=== PATIENT | male | born 1960 | race Caucasian/White ===

== ENCOUNTER 2022-10-15 14:00 | Inpatient (IN) ==
--- NOTE | 2022-10-15 14:29 | Emergency Department Note ---
Impression & Plan Hypoxia, Hypokalemia, Fatigue, Hypomagnesemia ED Provider Note Provider: Sav Ibanez MD DATE OF SERVICE: 10/15/2022 CHIEF COMPLAINT: Shortness of breath, fatigue HISTORY OF PRESENT ILLNESS: Patient is a 62-year-old gentleman history of CAD and A-fib on Eliquis presenting here today via ambulance from his home. States he felt very lightheaded and weak and shortness of breath earlier today while at the store. Made at home and called 9 1 as his pulse ox was noted to be home low at home. States he is not a smoker. States he had some chronic fatigue issues over the last year or 2. Denies any chest pain today at all. States he did notice little bit of increased swelling of his legs and feet today. Denies any abdominal symptoms or pain. Denies recent sick contacts. States compliance with his home Eliquis and other medications including aspirin. Not currently on a diuretic. Denies significant runny nose or cough. Has had some increased rest recently due to mother's recent fall and injury. PAST MEDICAL HISTORY: As noted above MEDICATIONS: Reviewed home medication SOCIAL HISTORY: Non-smoker, PHYSICAL EXAM: GENERAL: alert and oriented in no acute distress on stretcher Head: normocephalic and atraumatic EYES: No injection, discharge or icterus. NECK: Trachea midline. ENT: Mucous membranes pink and moist. LUNGS: Airway patent. No retractions. Breath sounds clear with a few scattered crackles in the lung bases. HEART: Regular rate and rhythm. No chest wall tenderness ABDOMEN: Soft and non-tender, without guarding or rebound. SKIN: Acyanotic, warm, dry, without rashes EXTREMITIES: Patient with 1-2+ pitting edema of the lower extremities NEUROLOGICAL: No focal deficits. No aphasia. No facial droop or slurred speech. Ambulatory. EK bpm sinus rhythm first-degree AV block. No acute ST segment elevation or depression with a QTc of 459. CONTINUOUS CARDIAC MONITORING: was ordered and showed a heart rate of 90s-100s bpm in first-degree AV block sinus rhythm to sinus tachycardia Patient's laboratory studies and imaging reviewed. Differential includes Reactive airway disease, pneumonia, pneumothorax, COPD, CHF, infections, cardiac ischemia, pulmonary embolism, musculoskeletal, gastrointestinal, as well as other pathologies. IMPRESSION/MEDICAL DECISION MAKING: Patient reportedly with cardiac history on Eliquis. Lower suspicion for VTE. No pain complaints lower suspicion for acute ACS/IL. EKG without findings of STEMI. Does not appear to be in A-fib at this time. Does have some leg swelling question some component of CHF with this. COVID flu RSV test sent but denies significant infectious symptoms. Blood work and x-ray ordered. BNP sent. Care has previously been at [facility]. Reports some chronic fatigue issues. Lyme test was sent but unsure of etiology. Does appear to be somewhat hypoxic here on room air ranging between the mid 80s to about 90% on room air at rest. Oxygen supplementation provided. Chest x-ray by radiology report and review question some mild pulmonary edema. Blood work without leukocytosis and mild anemia noted. No priors for comparison. Also has evidence of some renal dysfunction with creatinine 1.56 but again unclear baseline. Slight hypomagnesemia of 1.4 noted. Slight hypokalemia of 2.9 noted. Supplementation via IV and oral ordered. No signs of acute hepatitis. BNP minimally elevated at 111. Troponin within normal limits at 17.5. Ordered low-dose IV Lasix for diuresis being mindful of the electrolyte levels currently. Given his hypoxia discussed with him staying for further treatment of his electrolyte abnormalities and fluid overload with further cardiac evaluation. He was in agreement. Hospitalist contacted. DIAGNOSIS: Shortness of breath, hypoxia, hypokalemia, hypomagnesemia DISPOSITION: Hospitalist will evaluate Patient was agreeable with this plan. Past Med/Surg History Medical History Afib Shelby esophagus CAD (coronary artery disease) GERD (gastroesophageal reflux disease) HTN (hypertension) Social History Smoking Status: Never smoker Feels Safe at Home: Yes Allergies Allergies Allergy/AdvReac Type Severity Reaction Status Date / Time bee venom protein (honey bee) Allergy Severe Anaphylaxis Verified 10/15/22 15:52 Home Meds Home Medications Medication Instructions Recorded Confirmed amlodipine 10 mg tablet 10 mg PO QAM 10/15/22 10/15/22 apixaban 5 mg tablet (Eliquis) 5 mg PO BID 10/15/22 10/15/22 aspirin 81 mg tablet,delayed 81 mg PO QAM 05/14/23 05/14/23 release atorvastatin 80 mg tablet (Lipitor) 80 mg PO QPM 10/15/22 10/15/22 carvedilol 6.25 mg tablet 6.25 mg PO BID 10/15/22 10/15/22 losartan 100 mg tablet 100 mg PO QAM 10/15/22 10/15/22 nitroglycerin 0.4 mg sublingual 0.4 mg sublingual UD PRN Chest Pain 10/15/22 10/15/22 tablet (Nitrostat) potassium chloride 20 mEq 20 meq PO QAM 10/15/22 10/15/22 tablet,extended release(part/cryst) Results & Data (ED) Vital Signs Vital Signs - 24 hr 10/15/22 14:04 10/15/22 14:11 10/15/22 14:21 Temperature 36.6 C Temperature Source Oral Pulse Rate 100 H Pulse Rate from SpO2 Sensor Respiratory Rate 16 Respiratory Effort / Characteristics Non-Labored Spontaneous Non-Labored Spontaneous Respiratory Depth Normal Normal Respiratory Pattern Regular Blood Pressure 146/72 H Blood Pressure Mean 96 Pulse Oximetry 98 Oxygen Delivery Method Nasal Cannula Nasal Cannula Nasal Cannula Oxygen Flow Rate 4 4 4 Sepsis Recent Fever Within 48 Hours No Sepsis New/Unexplained Change in Mental Status No Sepsis Action Taken by Nursing No Action Required Oxygen Flow Rate - Titration Pulse Oximetry Post Tiitration 10/15/22 14:22 10/15/22 14:33 10/15/22 14:20 Temperature Temperature Source Pulse Rate 99 H 96 H Pulse Rate from SpO2 Sensor 98 H Respiratory Rate 22 Respiratory Effort / Characteristics Respiratory Depth Respiratory Pattern Blood Pressure Blood Pressure Mean Pulse Oximetry 89 L 91 Oxygen Delivery Method Room Air Nasal Cannula Oxygen Flow Rate 3 Sepsis Recent Fever Within 48 Hours Sepsis New/Unexplained Change in Mental Status Sepsis Action Taken by Nursing Oxygen Flow Rate - Titration 3 Pulse Oximetry Post Tiitration 92 10/15/22 14:30 10/15/22 14:30 10/15/22 15:00 Temperature Temperature Source Pulse Rate 98 H Pulse Rate from SpO2 Sensor 97 H Respiratory Rate 20 Respiratory Effort / Characteristics Respiratory Depth Respiratory Pattern Blood Pressure 178/86 H 157/74 H Blood Pressure Mean 116 101 Pulse Oximetry 90 Oxygen Delivery Method Nasal Cannula Oxygen Flow Rate 3 Sepsis Recent Fever Within 48 Hours Sepsis New/Unexplained Change in Mental Status Sepsis Action Taken by Nursing Oxygen Flow Rate - Titration Pulse Oximetry Post Tiitration 10/15/22 15:00 10/15/22 15:30 10/15/22 15:30 Temperature Temperature Source Pulse Rate 100 H 94 H Pulse Rate from SpO2 Sensor 99 H 92 H Respiratory Rate 17 22 Respiratory Effort / Characteristics Respiratory Depth Respiratory Pattern Blood Pressure 169/82 H Blood Pressure Mean 111 Pulse Oximetry 96 94 Oxygen Delivery Method Nasal Cannula Nasal Cannula Oxygen Flow Rate 3 3 Sepsis Recent Fever Within 48 Hours Sepsis New/Unexplained Change in Mental Status Sepsis Action Taken by Nursing Oxygen Flow Rate - Titration Pulse Oximetry Post Tiitration Laboratory Data 10/15/22 14:10 10/15/22 14:10 Lab Results 10/15/22 10/15/22 10/15/22 Range/Units 14:10 14:10 14:10 WBC 6.11 (4.8-10.8) K/ul RBC 3.20 L (4.70-6.10) M/uL Hgb 10.6 L (14.0-18.0) g/dl Hct 28.9 L (42.0-52.0) % MCV 90.3 (80.0-100.0) fL MCH 33.1 (25.0-34.0) pg MCHC 36.7 H (32.0-36.0) g/dL RDW Std Deviation 45.6 (36.4-46.3) fL RDW Coeff of Lan 14.3 (11.5-14.5) % Plt Count 137 (130-400) K/uL MPV 10.5 (9.4-12.4) fL Immature Gran % (Auto) 0.3 % Neut % (Auto) 64.5 % Lymph % (Auto) 17.7 % Shackelford % (Auto) 15.1 % Eos % (Auto) 1.3 % Baso % (Auto) 1.1 % Neut # (Auto) 3.94 (1.40-6.50) K/uL Lymph # (Auto) 1.08 L (1.2-3.4) K/uL Shackelford # (Auto) 0.92 H (0.11-0.59) K/uL Eos # (Auto) 0.08 (0-0.50) K/uL Baso # (Auto) 0.07 (0-0.2) K/uL Immature Gran # (Auto) 0.02 (0.01-0.20) K/uL PT (9.0-12.0) Seconds INR (0.9-1.1) APTT (21.0-31.0) Seconds PTT Ratio Sodium (136-145) mmol/L Potassium (3.5-5.1) mmol/L Chloride (98-107) mmol/L Carbon Dioxide (21-32) mmol/L Anion Gap (3-11) BUN (6-23) mg/dl Creatinine (0.6-1.4) mg/dl Est Cr Clr Drug Dosing ml/min Est GFR ( Amer) ml/min Est GFR (Non-Af Amer) ml/min BUN/Creatinine Ratio (10-20) Glucose (70-99(Fasting)) mg/dl Calcium (8.6-10.3) mg/dl Magnesium (1.7-2.4) mg/dl Total Bilirubin (0.2-1.0) mg/dl AST (13-39) U/L ALT (7-52) U/L Alkaline Phosphatase (34-104) U/L Troponin I High Sens (0-20) pg/ml B-Natriuretic Peptide 111 H (0-100) pg/ml Total Protein (6.0-8.3) gm/dl Albumin (3.4-5.0) gm/dl Globulin (2.5-4.0) gm/dl Albumin/Globulin Ratio (0.9-2) Lyme Disease IgG Ab Negative (Negative) Lyme Disease IgM Ab Negative (Negative) SARS-CoV-2 (PCR) (Negative) Influenza Type A (PCR) (Neg) Influenza Type B (PCR) (Neg) RSV (RT-PCR) (Neg) 10/15/22 10/15/22 10/15/22 Range/Units 14:10 14:10 15:00 WBC (4.8-10.8) K/ul RBC (4.70-6.10) M/uL Hgb (14.0-18.0) g/dl Hct (42.0-52.0) % MCV (80.0-100.0) fL MCH (25.0-34.0) pg MCHC (32.0-36.0) g/dL RDW Std Deviation (36.4-46.3) fL RDW Coeff of Lan (11.5-14.5) % Plt Count (130-400) K/uL MPV (9.4-12.4) fL Immature Gran % (Auto) % Neut % (Auto) % Lymph % (Auto) % Shackelford % (Auto) % Eos % (Auto) % Baso % (Auto) % Neut # (Auto) (1.40-6.50) K/uL Lymph # (Auto) (1.2-3.4) K/uL [place]ackelford # (Auto) (0.11-0.59) K/uL Eos # (Auto) (0-0.50) K/uL Baso # (Auto) (0-0.2) K/uL Immature Gran # (Auto) (0.01-0.20) K/uL PT 12.4 H (9.0-12.0) Seconds INR 1.1 (0.9-1.1) APTT 28.2 (21.0-31.0) Seconds PTT Ratio 1.0 Sodium 141 (136-145) mmol/L Potassium 2.9 L (3.5-5.1) mmol/L Chloride 97 L (98-107) mmol/L Carbon Dioxide 35 H (21-32) mmol/L Anion Gap 9 (3-11) BUN 25 H (6-23) mg/dl Creatinine 1.56 H (0.6-1.4) mg/dl Est Cr Clr Drug Dosing 59.2 ml/min Est GFR ( Amer) 54.8 ml/min Est GFR (Non-Af Amer) 47.2 ml/min BUN/Creatinine Ratio 16.0 (10-20) Glucose 107 H (70-99(Fasting)) mg/dl Calcium 8.7 (8.6-10.3) mg/dl Magnesium 1.4 L (1.7-2.4) mg/dl Total Bilirubin 0.7 (0.2-1.0) mg/dl AST 25 (13-39) U/L ALT 23 (7-52) U/L Alkaline Phosphatase 64 (34-104) U/L Troponin I High Sens 17.5 (0-20) pg/ml B-Natriuretic Peptide (0-100) pg/ml Total Protein 7.2 (6.0-8.3) gm/dl Albumin 3.8 (3.4-5.0) gm/dl Globulin 3.4 (2.5-4.0) gm/dl Albumin/Globulin Ratio 1.1 (0.9-2) Lyme Disease IgG Ab (Negative) Lyme Disease IgM Ab (Negative) SARS-CoV-2 (PCR) NEGATIVE (Negative) Influenza Type A (PCR) Negative (Neg) Influenza Type B (PCR) Negative (Neg) RSV (RT-PCR) Negative (Neg) Administered Medications Discontinued Medications Furosemide (Furosemide Inj 20 Mg/2 Ml Vial) 20 mg IV ONE ONE Stop: 10/15/22 15:05 Last Admin: 10/15/22 15:48 Dose: 20 mg Documented By: EVELYNE Magnesium Sulfate/Dextrose (Magnesium Sulfate / D5w) 1 gm in 100 mls @ 200 mls/hr IV Q30M RENÉ Stop: 10/15/22 15:58 Last Admin: 10/15/22 16:37 Dose: 200 mls/hr Documented By: Infusion: 10/15/22 16:18 Dose: 200 mls/hr Documented By: Admin: 10/15/22 15:48 Dose: 200 mls/hr Documented By: EVELYNE Potassium Chloride (K Kareem / Wtr) 10 meq in 100 mls @ 100 mls/hr IV Q1H RENÉ Stop: 10/15/22 16:59 Last Admin: 10/15/22 15:48 Dose: 100 mls/hr Documented By: EVELYNE Potassium Chloride (Potassium Chloride Crtab 20 Meq Tabcr) 40 meq PO NOW STA Stop: 10/15/22 15:00 Last Admin: 10/15/22 15:48 Dose: 40 meq Documented By: EVELYNE Imaging Data Radiologist's Impression: Chest X-Ray 10/15/22 14:19 XR chest 1V portable CLINICAL HISTORY: Dyspnea, hypoxia TECHNIQUE: Single frontal radiograph of the chest was obtained. Comparison: None available at the time of this dictation. FINDINGS: Exam is limited by underpenetration. Cardiomegaly is noted. Prominence and cephalization of the vasculature is seen. No evidence of pleural effusion or pneumothorax. IMPRESSION: Cardiomegaly and mild pulmonary edema. ACT 112: Negative or not required by law. Electronically signed by: Henry Barrios M.D. 10/15/2022 3:00 PM Discharge Plan Visit Data Chief Complaint: Shortness of Breath/Dyspnea ED Provider: Sav Ibanez Discharge Problem: Hypoxia, Hypokalemia, Fatigue, Hypomagnesemia Patient Disposition: Being Evaluated by Hospitalist Discharge Instructions Interventions: ED Discharge Assessment Last Done: 10/15/22 17:20 Fatigue Qualifiers: Fatigue type: unspecified Qualified Code(s): R53.83 - Other fatigue
[2022-10-15 14:34] LABS: Basophils # (auto) 0.07 K/uL (0-0.2); Basophils % (auto) 1.1 %; Eosinophils # (auto) 0.08 K/uL (0-0.50); Eosinophils % (auto) 1.3 %; Hematocrit (blood only) 28.9 % (42.0-52.0); Hemoglobin 10.6 g/dl (14.0-18.0); Immature Granulocytes # (auto) 0.02 K/uL (0.01-0.20); Immature Granulocytes % (auto) 0.3 %; Lymphocytes # (auto) 1.08 K/uL (1.2-3.4); Lymphocytes % (auto) 17.7 %; Mean Corpuscular Hemoglobin 33.1 pg (25.0-34.0); Mean Corpuscular Hgb Conc 36.7 g/dL (32.0-36.0); Mean Corpuscular Volume 90.3 fL (80.0-100.0); Mean Platelet Volume 10.5 fL (9.4-12.4); Monocytes # (auto) 0.92 K/uL (0.11-0.59); Monocytes % (auto) 15.1 %; Neutrophils # (auto) 3.94 K/uL (1.40-6.50); Neutrophils % (auto) 64.5 %; Platelet Count 137 K/uL (130-400); RDW Coefficient of Variation 14.3 % (11.5-14.5); RDW Standard Deviation 45.6 fL (36.4-46.3); White Blood Count 6.11 K/ul (4.8-10.8)
[2022-10-15 14:49] LABS: Albumin Globulin Ratio 1.1 (0.9-2); Albumin Level 3.8 gm/dl (3.4-5.0); Bilirubin,Total 0.7 mg/dl (0.2-1.0); Calcium 8.7 mg/dl (8.6-10.3); Creatinine Clr Calc Pharmacy 59.2 ml/min; Est GFR (African American) 54.8 ml/min; Est GFR (Non-African American) 47.2 ml/min; Globulin 3.4 gm/dl (2.5-4.0); Magnesium 1.4 mg/dl (1.7-2.4); Potassium 2.9 mmol/L (3.5-5.1); Total Protein 7.2 gm/dl (6.0-8.3)
[2022-10-15 14:56] LABS: Troponin I High Sensitivity 17.5 pg/ml (0-20)
[2022-10-15] MEDS ORDERED: POTASSIUM CHLORIDE CRTAB 20 MEQ TABCR PO STA (14:59)
--- NOTE | 2022-10-15 15:02 | XRay Report ---
XR chest 1V portable CLINICAL HISTORY: Dyspnea, hypoxia TECHNIQUE: Single frontal radiograph of the chest was obtained. Comparison: None available at the time of this dictation. FINDINGS: Exam is limited by underpenetration. Cardiomegaly is noted. Prominence and cephalization of the vascu lature is seen. No evidence of pleural effusion or pneumothorax. IMPRESSION: Cardiomegaly and mild pulmonary edema. ACT 112: Negative or not required by law. Electronically signed by: Henry Barrios M.D. 10/15/2022 3:00 PM
[2022-10-15 15:04] LABS: INR 1.1 (0.9-1.1); Partial Thromboplastin Time 28.2 Seconds (21.0-31.0); Prothrombin Time 12.4 Seconds (9.0-12.0)
[2022-10-15] MEDS ORDERED: FUROSEMIDE INJ 20 MG/2 ML VIAL IV ONE (15:04)
[2022-10-15 15:12] LABS: Lyme Ab IgG w/WB Rflx Negative (Negative); Lyme Ab IgM w/WB Rflx Negative (Negative)
--- NOTE | 2022-10-15 15:33 | History & Physical Report ---
Date of Service October 15, 2022 Assessment & Plan (1) CAD (coronary artery disease): Plan: Acute hypoxic respiratory failure, suspect 2/2 acute CHF History of CAD w/ PCI, no echo or records available as patient is [facility] patient. Records pending. Sees Dr. Borges CXR is consistent with pulmonary edema, BNP is mildly elevated at 111 EKG: Sinus rhythm with first-degree AV block, QTc 459, no territorial ST segment or T wave changes - high-sensitivity troponin 17.5 Patient received 20 mg of Lasix in ER, received 10 mEq IV potassium and 40 mEq oral potassium along with this due to concurrent hypokalemia Continue Lasix IV twice daily, follow clinical progression Echo pending for EF evaluation, murmur evaluation. Murmur was not known to patient No evidence of superimposed pneumonia Quad screen pending GEORGE versus CKD Admitting creatinine 1.56 without baseline available Patient denies kidney disease at baseline Clinically is volume overloaded with pulmonary edema and lower extremity edema. Will trend creatinine and diurese. Losartan held. Patient was able to void a 350 cc at bedside, bladder scan less than 250 postvoid. No evidence of retention/obstruction Renal ultrasound pending CAD, CHF No acute EKG changes, high sensor troponin normal Patient has a stent card with him, confirms 1 ULI to circumflex. Patient continues on aspirin/Eliquis. He is on Eliquis for paroxysmal A-fib. Continue atorvastatin 80 mg daily Continue carvedilol 6.25 mg twice daily Continue aspirin 81mg daily Continue hydrochlorothiazide 25 mg daily Continue losartan 100 mg daily Continue metoprolol 50 mg succinate daily Paroxysmal A-fib, chronic, not present on admission Patient with history of paroxysmal A-fib for she is anticoagulated on Eliquis Sinus rhythm on admission No acute change in management for this at time of admission Hypokalemia, hypomagnesemia Repletion ordered BMP in 4 hours, then daily. Goal potassium 4.0, magnesium 2.0 Hypertension Continue antihypertensives as otherwise noted Patient has had hypertension despite multiple agents and a history of hypokalemia. renin/low levels ordered DVT prophylaxis: Anticoagulated Disposition: Medical telemetry for CHF/diuresis CODE STATUS: Full code Diet: Heart healthy, low-salt (2) HTN (hypertension): (3) Afib: (4) Shelby esophagus: (5) GERD (gastroesophageal reflux disease): History of Present Illness Primary Care Provider: Samir CrewsAmada Cayden Wei is a 62-year-old male with a past medical history of CAD, A-fib anticoagulated on Eliquis who became lightheaded and dizzy with shortness of breath while walking around the store. On arrival in ER EKG did not show acute ST segment changes, was in sinus rhythm. Patient appeared volume overloaded, CXR was consistent with pulmonary edema, BNP with slight elevation. Patient was borderline hypoxic at 88-89% with easy desaturation and fatigue. Creatinine was elevated at 1.56 without baseline available. Patient was significantly hypokalemic at 2.9, hypomagnesemic at 1.4 Increased exertional fatigue and shortness of breath walking around [place] today. Went mackenzie eant pulseox 83%. No ches tpain at any point. No fevers/chills/sweats Has had increased leg swelling bilaterally he just noticed today Normally does not sleep on back, by can sleep laying back on one side. He does get some reflux/gerd cough and hx of barretts. No orthopnea last night. No sputum production. Cough is dry. No diarrhea/constipation No syncope/presyncope, but feels fatigued overall. Feels it is taking progres sively longer for exertional fatigue to improve with rest. Pt does not know what his ejection fraction is, is not sure if it is normal or redcued. Medical History: Reviewed Medications: Reviewed Surgical History: Reviewed. Hx [facility] Jan 2021 with 1x ULI to circumflex with Dr. Borges. Family history: Reviewed Allergies: Reviewed. No medication allergies Social History: No history current or former tobacco use. Social etoh use on weekends, no weekday use Code Status: Full Code Allergies Allergy/AdvReac Type Severity Reaction Status Date / Time bee venom protein (honey bee) Allergy Severe Anaphylaxis Verified 10/15/22 15:52 Home Medications Medication Instructions Recorded Confirmed Type amlodipine 10 mg tablet 10 mg PO DAILY 10/15/22 10/15/22 History apixaban 5 mg tablet (Eliquis) 5 mg PO BID 10/15/22 10/15/22 History atorvastatin 80 mg tablet (Lipitor) 80 mg PO DAILY 10/15/22 10/15/22 History carvedilol 6.25 mg tablet 6.25 mg PO BID 10/15/22 10/15/22 History losartan 100 mg tablet 100 mg PO DAILY 10/15/22 10/15/22 History nitroglycerin 0.4 mg sublingual 0.4 mg sublingual UD PRN Chest Pain 10/15/22 10/15/22 History tablet (Nitrostat) potassium chloride 20 mEq 20 meq PO DAILY 10/15/22 10/15/22 History tablet,extended release(part/cryst) Past Med/Surg History Medical History Afib Shelby esophagus CAD (coronary artery disease) GERD (gastroesophageal reflux disease) HTN (hypertension) Social History Smoking Status: Never smoker Feels Safe at Home: Yes Review of Systems Review of Systems: All systems reviewed & are unremarkable except as noted in HPI & below Physical Exam Physical Exam: General: A&Ox3. NAD. Cooperative. HEENT: Atraumatic, normocephalic. Vision/hearing itact. NORTH. Pulm: Bibasilar crackles ,-wheezes, -rales, -rhonchi. Symmetrical chest rise. No increased work of breathing. No respiratory distress. on 2l NC Spo@ ~92% with desat to 88-90% during conversation. Cardiac: RRR, +mr. Radial pulses intact and symmetrical. JVD at the clavicle, rises about 3cm with HJR. Abdominal: Nontender, nondistended, soft. BS present. Ext: warm, dry. 2+ pitting edema of the LE bilaterally. Sensation/strength symmetrical in upper and lower extremities without deficit. Results & Data Results & Data Vital Signs (Past 12 Hours) Vital Signs Temp Pulse Resp BP Pulse Ox O2 Del Method O2 Flow Rate 10/15/22 14:33 89 L Room Air 10/15/22 14:22 99 H 10/15/22 14:21 98 Nasal Cannula 4 10/15/22 14:11 Nasal Cannula 4 10/15/22 14:04 36.6 C 100 H 16 146/72 H Nasal Cannula 4 PG Care Time/CCT Total # of Minutes Spent Total Time Spent with Patient: Total time spent is greater than 50% in coordination of care (as documented) at patient's floor/unit and/or counseling patient: Coding Level of Care Code 53369 INT INP/OBS CARE 3/75MIN Diagnoses CAD (coronary artery disease) I25.10 HTN (hypertension) I10 Afib I48.91 Shelby esophagus K22.70 GERD (gastroesophageal reflux disease) K21.9
[2022-10-15] MEDS: MAGNESIUM SULFATE / D5W 1 GM/100 ML BAG IV SCH ×2 (15:48→16:37)
[2022-10-15] MEDS: POTASSIUM CHLORIDE / WTR 10 MEQ/100 ML PLCT IV SCH ×2 (15:48→17:47)
[2022-10-15 16:00] LABS: Influenza A virus by PCR Negative (Neg); Influenza B virus by PCR Negative (Neg); RSV by PCR Negative (Neg); SARS CoV2 RNA(COVID-19) Ceph NEGATIVE (Negative)
[2022-10-15] MEDS ORDERED: NITROGLYCERIN SL 0.4 MG/TAB TAB SL PRN (17:40)
[2022-10-15] MEDS: MAGNESIUM OXIDE 400 MG TAB PO SCH ×2 (18:44→20:16)
[2022-10-15] MEDS: APIXABAN 5 MG TABLET PO SCH (20:16)
[2022-10-15] MEDS: POTASSIUM CHLORIDE CRTAB 20 MEQ TABCR PO SCH (20:16)
[2022-10-15] MEDS: FUROSEMIDE INJ 20 MG/2 ML VIAL IV SCH (20:16)
[2022-10-15] MEDS: carvediloL 6.25 MG TAB PO SCH (20:16)
[2022-10-15 20:23] LABS: BUN Creatinine Ratio 14.3 (10-20); Calcium 8.7 mg/dl (8.6-10.3); Creatinine Clr Calc Pharmacy 56.4 ml/min; Est GFR (African American) 52.7 ml/min; Est GFR (Non-African American) 45.5 ml/min; Magnesium 1.9 mg/dl (1.7-2.4); Potassium 3.2 mmol/L (3.5-5.1)
[2022-10-15] MEDS ORDERED: PNEUMOCOCCAL Polysaccharide Vaccine 25mcg/0.5mL vial/Syr IM ONE (20:30)
[2022-10-15 21:01] LABS: Appearance Urine Clear (Clear); Bilirubin Urine Negative (Negative); Blood Urine Negative (Negative); Color Urine Yellow; Glucose Urine UA Negative (Negative); Ketones Urine Negative (Negative); Leukocyte Esterase Urine Negative (Negative); Nitrite Urine Negative (Negative); Protein Urine Negative (Negative); Specific Gravity Urine 1.008 (1.000-1.030); Urobilinogen Urine Negative (Negative); pH Urine >= 9.0 (4.5-7.5)
--- NOTE | 2022-10-16 06:33 | Electrocardiogram Report ---
Test Reason : Blood Pressure : / mmHG Vent. Rate : 098 BPM Atrial Rate : 098 BPM P-R Int : 216 ms QRS Dur : 086 ms QT Int : 360 ms P-R-T Axes : 071 017 045 degrees QTc Int : 459 ms Sinus rhythm with 1st degree A-V block Cannot rule out Anterior infarct , age undetermined Abnormal ECG No previous ECGs available Confirmed by Abram River ([id number]) on 10/16/2022 6:32:49 AM Referred By: REFERRED SELF Confirmed By:Abram River
--- NOTE | 2022-10-16 07:07 | Ultrasound Report ---
ULTRASOUND KIDNEYS AND BLADDER CLINICAL HISTORY: Acute renal insufficiency. COMPARISON STUDY: No priors. TECHNIQUE: Real-time, grayscale, and color flow sonography of the kidneys and bladder is performed. I mages are reviewed in the transverse and longitudinal planes. FINDINGS: Kidneys: The kidneys are normal in size and echotexture. The right kidney measures 13.3 x 5.4 x 4.4 c m and the left kidney measures 11.9 x 5.4 x 5.0 cm. There is no hydronephrosis. No shadowing renal c alculi are identified. There is no sonographic evidence of contour deforming renal mass lesion. No pe rinephric fluid is identified. Bladder: The bladder wall appears mildly thickened/trabeculated suggesting chronic outlet obstruction . Bilateral ureteral jets were seen. IMPRESSION: 1. Normal sonographic appearance of the kidneys. 2. The appearance of the bladder suggests chronic outlet obstruction. ACT 112: Negative or not required by law. Electronically signed by: Vance Horowitz M.D. 10/16/2022 7:06 AM
--- NOTE | 2022-10-16 07:13 | Hospitalist Progress Note ---
Date of Service October 16, 2022 Assessment & Plan (1) CAD (coronary artery disease): Plan: Acute hypoxic respiratory failure, suspect 2/2 acute CHF History of CAD w/ PCI, no echo or records available as patient is [facility] patient. Records pending. Sees Dr. Borges CXR is consistent with pulmonary edema, BNP is mildly elevated at 111 EKG: Sinus rhythm with first-degree AV block, QTc 459, no territorial ST segment or T wave changes - high-sensitivity troponin 17.5 Patient received 20 mg of Lasix in ER, received 10 mEq IV potassium and 40 mEq oral potassium along with this due to concurrent hypokalemia Continue Lasix IV twice daily, follow clinical progression Echo pending, murmur heard on exam No evidence of superimposed pneumonia Respitory viral panel negative GEORGE versus CKD Admitting creatinine 1.56 without baseline available Patient denies kidney disease at baseline Clinically is volume overloaded with pulmonary edema and lower extremity edema. Will trend creatinine and diurese. - Losartan held. No evidence of retention/obstruction Renal ultrasound with mild thickening, indicative of chronic outlet obstruction CAD, CHF No acute EKG changes, high sensor troponin normal Patient has a stent card with him, confirms 1 ULI to circumflex. Patient continues on aspirin/Eliquis. He is on Eliquis for paroxysmal A-fib. Continue atorvastatin 80 mg daily Continue carvedilol 6.25 mg twice daily Continue aspirin 81mg daily Continue hydrochlorothiazide 25 mg daily Continue losartan 100 mg daily Continue metoprolol 50 mg succinate daily Paroxysmal A-fib Patient with history of paroxysmal A-fib for she is anticoagulated on Eliquis Sinus rhythm on admission No acute change in management for this at time of admission Hypokalemia, hypomagnesemia Repletion ordered BMP in 4 hours, then daily. Goal potassium 4.0, magnesium 2.0 Hypertension Continue antihypertensives as otherwise noted Patient has had hypertension despite multiple agents and a history of hypokalemia. - renin/low levels pending DVT prophylaxis: Anticoagulated CODE STATUS: Full code Diet: Heart healthy, low-salt (2) HTN (hypertension): (3) Afib: (4) Shelby esophagus: (5) GERD (gastroesophageal reflux disease): Admission and Anticipated Discharge Date Admission Date: October 15, 2022 Review of Systems Review of Systems: As per above Physical Exam Physical Exam: Constitutional: well-appearing, no acute distress HEENT: NCAT, no conjunctival injection CV: regular rhythm, no murmur appreciated, extremities well-perfused, no LE edema Resp: CTABL, no wheezes/rales/rhonchi appreciated, no increased work of breathing GI: soft, nondistended, nontender, BS normoactive MSK: no gross deformities appreciated Skin: warm, dry, no rash appreciated Neuro: alert, oriented, no focal neurologic deficit appreciated Results & Data Results & Data Vital Signs (Past 12 Hours) Vital Signs Temp Pulse Pulse Resp BP Pulse Ox O2 Del Method 10/16/22 03:06 37.4 C 90 18 136/78 94 Nasal Cannula 10/16/22 00:32 85 10/15/22 22:00 36.6 C 88 20 127/79 93 Nasal Cannula 10/15/22 21:32 Nasal Cannula 10/15/22 19:41 37 C 90 16 167/79 H 92 Nasal Cannula O2 Flow Rate 10/16/22 03:06 3 10/16/22 00:32 10/15/22 22:00 3 10/15/22 21:32 3 10/15/22 19:41 3 Resident Activity Tracking Resident Involvement: Resident Care Provided Care Provided: Adult Hospital Medicine
[2022-10-16] MEDS: MAGNESIUM OXIDE 400 MG TAB PO SCH ×2 (09:12→20:19)
[2022-10-16] MEDS: APIXABAN 5 MG TABLET PO SCH ×2 (09:12→20:17)
[2022-10-16] MEDS: ATORVASTATIN 40 MG TAB PO SCH (09:12)
[2022-10-16] MEDS: carvediloL 6.25 MG TAB PO SCH ×2 (09:12→20:17)
[2022-10-16] MEDS: PANTOprazole 40 MG TAB PO SCH (09:12)
[2022-10-16] MEDS: amLODIPine BESYLATE 5 MG TAB PO SCH (09:12)
[2022-10-16] MEDS: POTASSIUM CHLORIDE CRTAB 20 MEQ TABCR PO SCH ×3 (09:13→20:20)
[2022-10-16] MEDS: FUROSEMIDE INJ 20 MG/2 ML VIAL IV SCH ×2 (09:13→20:18)
[2022-10-16 09:23] LABS: Basophils # (auto) 0.05 K/uL (0-0.2); Basophils % (auto) 0.7 %; Eosinophils % (auto) 1.5 %; Hematocrit (blood only) 30.5 % (42.0-52.0); Hemoglobin 10.4 g/dl (14.0-18.0); Immature Granulocytes # (auto) 0.03 K/uL (0.01-0.20); Immature Granulocytes % (auto) 0.4 %; Lymphocytes # (auto) 0.76 K/uL (1.2-3.4); Lymphocytes % (auto) 11.3 %; Mean Corpuscular Hemoglobin 32.1 pg (25.0-34.0); Mean Corpuscular Hgb Conc 34.1 g/dL (32.0-36.0); Mean Corpuscular Volume 94.1 fL (80.0-100.0); Mean Platelet Volume 10.2 fL (9.4-12.4); Monocytes # (auto) 1.04 K/uL (0.11-0.59); Monocytes % (auto) 15.5 %; Neutrophils # (auto) 4.73 K/uL (1.40-6.50); Neutrophils % (auto) 70.6 %; Platelet Count 126 K/uL (130-400); RDW Coefficient of Variation 14.6 % (11.5-14.5); RDW Standard Deviation 49.9 fL (36.4-46.3); Red Blood Count 3.24 M/uL (4.70-6.10); White Blood Count 6.71 K/ul (4.8-10.8)
[2022-10-16 09:33] LABS: BUN Creatinine Ratio 13.2 (10-20); Calcium 8.3 mg/dl (8.6-10.3); Creatinine Clr Calc Pharmacy 61.4 ml/min; Est GFR (African American) 60.3 ml/min; Magnesium 1.9 mg/dl (1.7-2.4); Potassium 3.4 mmol/L (3.5-5.1)
--- NOTE | 2022-10-16 10:08 | Hospitalist Progress Note ---
Date of Service October 16, 2022 Assessment & Plan (1) CAD (coronary artery disease): Plan: Acute hypoxic respiratory failure secondary to HFpEF History of CAD w/ PCI, no echo or records available as patient is [facility] patient. Records pending. Sees Dr. Borges CXR is consistent with pulmonary edema, BNP is mildly elevated at 111 EKG: Sinus rhythm with first-degree AV block, QTc 459, no territorial ST segment or T wave changes - high-sensitivity troponin 17.5 Continue Lasix IV twice daily - So far net negative 2.5 L, continue with strict I/Os Echo with grade II diastolic dysfunction, mild to moderate , EF= 60-65% No evidence of superimposed pneumonia, respiratory viral panel is negative GEORGE versus CKD Admitting creatinine 1.56 without baseline available. Working on obtaining records. Patient denies kidney disease at baseline Clinically is volume overloaded with pulmonary edema and lower extremity edema. - Losartan held. - Creatine trending down with diuresis, continue to trend Renal ultrasound with mildly thickening on bladder suggestive on chronic outlet obstruction CAD, CHF No acute EKG changes, high sensor troponin normal Patient has a stent card with him, confirms 1 ULI to circumflex. Patient continues on aspirin/Eliquis. He is on Eliquis for paroxysmal A-fib. Continue atorvastatin 80 mg daily Continue carvedilol 6.25 mg twice daily Continue aspirin 81mg daily hold losartan 100 mg daily Paroxysmal A-fib Patient with history of paroxysmal A-fib for he is anticoagulated on Eliquis Sinus rhythm on admission No acute change in management for this at time of admission Hypokalemia, hypomagnesemia Repleting as needed Daily BMP Goal potassium 4.0, magnesium 2.0 Hypertension Continue antihypertensives as otherwise noted Patient has had hypertension despite multiple agents and a history of hypokalemia. - renin/low levels pending DVT prophylaxis: Anticoagulated CODE STATUS: Full code Diet: Heart healthy, low-salt (2) HTN (hypertension): (3) Afib: (4) Shelby esophagus: (5) GERD (gastroesophageal reflux disease): Admission and Anticipated Discharge Date Admission Date: October 15, 2022 Supervising Physician Co-Signing Physician Notes Attending attestation Pt seen and examined in concert with Dr. Escobar. In agreement with the documented findings as noted in the resident documentation with any exceptions or additions as noted here. Ongoing improvement in fatigue and SOB nearing basline. Reports no known etiology that would account for fluid overload though has been under considerable lifestress and may have started eating more convenience food of late. On examination, S1/S2 nl RRR no MCG. Decreased BS bilateral bases with rales. Abd NT/ND BS+ve. 1+ pitted edema to the proximal hernandez bilaterally AHRF with concern for HFpEF with acute exacerbation without previous Dx of HF known - echo pending. Improving with furosemide and diuresis (2.5L negative) and will continue same with strict I/O monitoring. GEORGE - Cr improving with diuresis, continue to monitor BMP daily. Renin, angiotensin ordered. Renal US pending. Else see resident documentation as noted. Subjective Eriberto doing well this morning. States he is feeling better. Still fatigued, but less short of breath. Denies chest pain. Review of Systems Review of Systems: As per above Physical Exam Physical Exam: Constitutional: well-appearing, no acute distress HEENT: NCAT, no conjunctival injection CV: regular rhythm, no murmur appreciated, extremities well-perfused, trace LE edema B/L. + JVD Resp: CTABL, no wheezes/rales/rhonchi appreciated, no increased work of breathing GI: soft, nondistended, nontender, BS normoactive MSK: no gross deformities appreciated Skin: warm, dry, no rash appreciated Neuro: alert, oriented, no focal neurologic deficit appreciated Results & Data Results & Data Vital Signs (Past 12 Hours) Vital Signs Temp Pulse Pulse Resp BP Pulse Ox O2 Del Method 10/16/22 03:06 37.4 C 90 18 136/78 94 Nasal Cannula 10/16/22 00:32 85 O2 Flow Rate 10/16/22 03:06 3 10/16/22 00:32
--- NOTE | 2022-10-16 12:25 | XCELERA ---
[id number]
[2022-10-17 06:43] LABS: BUN Creatinine Ratio 13.4 (10-20); Blood Urea Nitrogen 19 mg/dl (6-23); Calcium 8.8 mg/dl (8.6-10.3); Carbon Dioxide 23 mmol/L (21-32); Chloride 108 mmol/L (98-107); Creatinine Clr Calc Pharmacy 62.1 ml/min; Est GFR (African American) 61.3 ml/min; Est GFR (Non-African American) 52.9 ml/min; Glucose 115 mg/dl (70-99(Fasting))
--- NOTE | 2022-10-17 07:17 | Hospitalist Progress Note ---
Date of Service October 17, 2022 Assessment & Plan (1) CAD (coronary artery disease): Plan: Acute hypoxic respiratory failure secondary to HFpEF History of CAD w/ PCI, no echo or records available as patient is [facility] patient. Records pending. Sees Dr. Borges CXR in ED consistent with pulmonary edema, BNP is mildly elevated at 111 EKG: Sinus rhythm with first-degree AV block, QTc 459, no territorial ST segment or T wave changes - high-sensitivity troponin 17.5 Continue Lasix IV twice daily - So far net negative 5 L, continue with strict I/Os Echo with grade II diastolic dysfunction, mild to moderate , EF= 60-65% No evidence of superimposed pneumonia, respiratory viral panel is negative GEORGE versus CKD, undetermined stage Admitting creatinine 1.56 without baseline available. Working on obtaining records. Patient denies kidney disease at baseline Clinically is volume overloaded with pulmonary edema and lower extremity edema. - Continue to hold Losartan. - Creatine trending down with diuresis, continue to trend Renal ultrasound with mildly thickening on bladder suggestive on chronic outlet obstruction CAD, CHF No acute EKG changes, high sensor troponin normal Patient has a stent card with him, confirms 1 ULI to circumflex. Patient continues on aspirin/Eliquis. He is on Eliquis for paroxysmal A-fib. Continue atorvastatin 80 mg daily Continue carvedilol 6.25 mg twice daily Continue aspirin 81mg daily hold losartan 100 mg daily Paroxysmal A-fib Patient with history of paroxysmal A-fib for he is anticoagulated on Eliquis Sinus rhythm on admission No acute change in management for this at time of admission Hypokalemia, hypomagnesemia Repleting as needed. Daily BMP Goal potassium 4.0, magnesium 2.0 Hypertension Continue antihypertensives as otherwise noted Patient has had hypertension despite multiple agents and a history of hypokalemia. - renin/low levels pending PRISCILLA -home cpap as needed DVT prophylaxis: Anticoagulated CODE STATUS: Full code Diet: Heart healthy, low-salt (2) HTN (hypertension): (3) Afib: (4) Shelby esophagus: (5) GERD (gastroesophageal reflux disease): (6) PRISCILLA (obstructive sleep apnea): Admission and Anticipated Discharge Date Admission Date: October 15, 2022 Supervising Physician Co-Signing Physician Notes Attending attestation Pt seen and examined in concert with Dr. Escobar. In agreement with the documented findings as noted in the resident documentation with any exceptions or additions as noted here. Patient reports worsened SOB overnight while getting up to go to the bathroom. Did not have CPAP yet, daughter brought in today. Overall symptoms reportedly improving still w/ diuresis. On examination, S1/S2 nl RRR no MCG. Decreased BS bilateral bases with rales. Abd NT/ND BS+ve. trace edema to the distal hernandez bilaterally AHRF with concern for HFpEF with acute exacerbation without previous Dx of HF known - TTE as noted. Continue diuresis and monitor BMP/I/O. May require ongoing O2 therapy at discharge. GEORGE - Cr continues to improve, continue to monitor BMP daily. Renin, angiotensin ordered. Else see resident documentation as noted. Subjective Eriberto reports doing well this morning. Attempted to decrease O2 to 1L overnight which was not tolerated well as his SOB/fatigue returned. Back on 3L now and feeling better wrt fatigue. No chest pain. Pt plans to have his home CPAP brought in for use tonight. Discussed echo results with pt who voiced und erstanding. Pt expressed interest in seeing [facility] cardio after d/c. Review of Systems Review of Systems: As per above Physical Exam Physical Exam: Constitutional: well-appearing, no acute distress HEENT: atraumatic, normocephalic, no conjunctival injection CV: regular rhythm, no murmur appreciated, extremities well-perfused, trace edema B/L proximal shins. + JVD Resp: No increased work of breathing, diminished sounds at bases bilaterally, +rales B/L GI: soft, nondistended, nontender, BS normoactive MSK: no gross deformities appreciated Skin: warm, dry, no rash appreciated Neuro: alert, oriented, no focal neurologic deficit appreciated Results & Data Results & Data Vital Signs (Past 12 Hours) Vital Signs Temp Pulse Pulse Resp BP Pulse Ox O2 Del Method 10/17/22 07:06 94 H 10/17/22 04:31 36.9 C 79 20 147/79 H 92 Nasal Cannula 10/17/22 02:36 85 10/16/22 19:49 36.5 C 89 20 157/77 H 95 Nasal Cannula O2 Flow Rate 10/17/22 07:06 10/17/22 04:31 3 10/17/22 02:36 10/16/22 19:49 1 Resident Activity Tracking Resident Involvement: Resident Care Provided Care Provided: Adult Hospital Medicine
[2022-10-17] MEDS: POTASSIUM CHLORIDE CRTAB 20 MEQ TABCR PO SCH ×3 (07:50→21:22)
[2022-10-17] MEDS: ATORVASTATIN 40 MG TAB PO SCH (07:51)
[2022-10-17] MEDS: APIXABAN 5 MG TABLET PO SCH ×2 (07:51→21:22)
[2022-10-17] MEDS: amLODIPine BESYLATE 5 MG TAB PO SCH (07:51)
[2022-10-17] MEDS: PANTOprazole 40 MG TAB PO SCH ×2 (07:52→21:22)
[2022-10-17] MEDS: carvediloL 6.25 MG TAB PO SCH ×2 (07:52→21:22)
[2022-10-17] MEDS: MAGNESIUM OXIDE 400 MG TAB PO SCH ×2 (07:52→21:23)
[2022-10-17] MEDS: FUROSEMIDE INJ 20 MG/2 ML VIAL IV SCH ×2 (07:53→21:23)
[2022-10-17 07:56] LABS: Magnesium 1.9 mg/dl (1.7-2.4); Potassium 4.1 mmol/L (3.5-5.1)
[2022-10-17 08:14] LABS: Hematocrit (blood only) 31.5 % (42.0-52.0); Mean Corpuscular Hgb Conc 34.9 g/dL (32.0-36.0); Mean Corpuscular Volume 94.6 fL (80.0-100.0); Mean Platelet Volume 10.4 fL (9.4-12.4); Platelet Count 152 K/uL (130-400); RDW Coefficient of Variation 14.6 % (11.5-14.5); RDW Standard Deviation 50.3 fL (36.4-46.3); Red Blood Count 3.33 M/uL (4.70-6.10); White Blood Count 7.03 K/ul (4.8-10.8)
[2022-10-17 08:15] LABS: ALC (manual) 0.91 K/uL (1.2-3.4); ANC (manual) 5.76 K/uL (1.4-6.5); Basophils # (manual) 0.07 K/uL (0-0.2); Basophils % (manual) 1 %; Eosinophils # (manual) 0.14 K/uL (0-0.50); Eosinophils % (manual) 2 %; Lymphocytes # (manual) 0.91 K/uL (1.2-3.4); Lymphocytes % (manual) 13 %; Monocytes # (manual) 0.21 K/uL (0.11-0.59); Monocytes % (manual) 3 %; Neutrophils # (manual) 5.76 K/uL (1.40-6.50); Neutrophils % (manual) 82 %; RBC Morphology Unremarkable
--- NOTE | 2022-10-18 07:00 | Hospitalist Progress Note ---
Date of Service October 18, 2022 Assessment & Plan (1) CAD (coronary artery disease): Plan: Acute hypoxic respiratory failure secondary to HFpEF History of CAD w/ PCI, no echo or records available as patient is [facility] patient. Records pending. Sees Dr. Borges CXR in ED consistent with pulmonary edema, BNP is mildly elevated at 111 EKG: Sinus rhythm with first-degree AV block, QTc 459, no territorial ST segment or T wave changes - high-sensitivity troponin 17.5 Continue Lasix IV twice daily - So far net negative 5 L, continue with strict I/Os Echo with grade II diastolic dysfunction, mild to moderate , EF= 60-65% No evidence of superimposed pneumonia, respiratory viral panel is negative GEORGE versus CKD, undetermined stage Admitting creatinine 1.56 without baseline available. Working on obtaining records. Patient denies kidney disease at baseline Clinically is volume overloaded with pulmonary edema and lower extremity edema. - Continue to hold Losartan. - Creatine trending down with diuresis, continue to trend Renal ultrasound with mildly thickening on bladder suggestive on chronic outlet obstruction CAD, CHF No acute EKG changes, high sensor troponin normal Patient has a stent card with him, confirms 1 ULI to circumflex. Patient continues on aspirin/Eliquis. He is on Eliquis for paroxysmal A-fib. Continue atorvastatin 80 mg daily Continue carvedilol 6.25 mg twice daily Continue aspirin 81mg daily hold losartan 100 mg daily Paroxysmal A-fib Patient with history of paroxysmal A-fib for he is anticoagulated on Eliquis Sinus rhythm on admission No acute change in management for this at time of admission Hypokalemia, hypomagnesemia Repleting as needed. Daily BMP Goal potassium 4.0, magnesium 2.0 Hypertension Continue antihypertensives as otherwise noted Patient has had hypertension despite multiple agents and a history of hypokalemia. - renin/low levels pending PRISCILLA -home cpap as needed DVT prophylaxis: Anticoagulated CODE STATUS: Full code Diet: Heart healthy, low-salt (2) HTN (hypertension): (3) Afib: (4) Shelby esophagus: (5) GERD (gastroesophageal reflux disease): (6) PRISCILLA (obstructive sleep apnea): Admission and Anticipated Discharge Date Admission Date: October 15, 2022 Review of Systems Review of Systems: As per above Physical Exam Physical Exam: Constitutional: well-appearing, no acute distress HEENT: NCAT, no conjunctival injection CV: regular rhythm, no murmur appreciated, extremities well-perfused, trace LE edema B/L. + JVD Resp: CTABL, no wheezes/rales/rhonchi appreciated, no increased work of breathing GI: soft, nondistended, nontender, BS normoactive MSK: no gross deformities appreciated Skin: warm, dry, no rash appreciated Neuro: alert, oriented, no focal neurologic deficit appreciated Results & Data Results & Data Vital Signs (Past 12 Hours) Vital Signs Temp Pulse Pulse Resp BP Pulse Ox O2 Del Method 10/18/22 04:13 36.3 C L 73 18 148/82 H 96 Room Air, CPAP 10/18/22 00:00 85 10/17/22 23:52 36.8 C 77 20 131/70 93 Room Air, CPAP 10/17/22 23:00 Room Air 10/17/22 19:40 36.8 C 82 20 161/83 H 93 Room Air
[2022-10-18 07:16] LABS: Basophils % (auto) 1.1 %; Eosinophils # (auto) 0.13 K/uL (0-0.50); Eosinophils % (auto) 1.4 %; Hematocrit (blood only) 36.9 % (42.0-52.0); Hemoglobin 12.4 g/dl (14.0-18.0); Immature Granulocytes # (auto) 0.03 K/uL (0.01-0.20); Immature Granulocytes % (auto) 0.3 %; Lymphocytes # (auto) 1.27 K/uL (1.2-3.4); Lymphocytes % (auto) 13.9 %; Mean Corpuscular Hemoglobin 32.4 pg (25.0-34.0); Mean Corpuscular Hgb Conc 33.6 g/dL (32.0-36.0); Mean Corpuscular Volume 96.3 fL (80.0-100.0); Mean Platelet Volume 10.2 fL (9.4-12.4); Neutrophils # (auto) 6.53 K/uL (1.40-6.50); Neutrophils % (auto) 71.3 %; Platelet Count 163 K/uL (130-400); RDW Coefficient of Variation 14.6 % (11.5-14.5); RDW Standard Deviation 50.3 fL (36.4-46.3); Red Blood Count 3.83 M/uL (4.70-6.10); White Blood Count 9.16 K/ul (4.8-10.8)
[2022-10-18 07:26] LABS: BUN Creatinine Ratio 14.6 (10-20); Calcium 9.5 mg/dl (8.6-10.3); Creatinine Clr Calc Pharmacy 55.7 ml/min; Est GFR (African American) 53.9 ml/min; Est GFR (Non-African American) 46.5 ml/min; Magnesium 1.9 mg/dl (1.7-2.4); Potassium 4.4 mmol/L (3.5-5.1)
[2022-10-18] MEDS: ATORVASTATIN 40 MG TAB PO SCH (08:43)
[2022-10-18] MEDS: carvediloL 6.25 MG TAB PO SCH (08:44)
[2022-10-18] MEDS: POTASSIUM CHLORIDE CRTAB 20 MEQ TABCR PO SCH (08:44)
[2022-10-18] MEDS: amLODIPine BESYLATE 5 MG TAB PO SCH (08:44)
[2022-10-18] MEDS: APIXABAN 5 MG TABLET PO SCH (08:44)
[2022-10-18] MEDS: MAGNESIUM OXIDE 400 MG TAB PO SCH (08:45)
--- NOTE | 2022-10-18 12:37 | Discharge Summary ---
Date of Service October 18, 2022 Admission HPI Per Admitting Provider Eriberto is a 62-year-old male with a past medical history of CAD, A-fib anticoagulated on Eliquis who became lightheaded and dizzy with shortness of breath while walking around the store. On arrival in ER EKG did not show acute ST segment changes, was in sinus rhythm. Patient appeared volume overloaded, CXR was consistent with pulmonary edema, BNP with slight elevation. Patient was borderline hypoxic at 88-89% with easy desaturation and fatigue. Creatinine was elevated at 1.56 without baseline available. Patient was significantly hypokalemic at 2.9, hypomagnesemic at 1.4 Increased exertional fatigue and shortness of breath walking around [place] today. Went mackenzie eant pulseox 83%. No ches tpain at any point. No fevers/chills/sweats Has had increased leg swelling bilaterally he just noticed today Normally does not sleep on back, by can sleep laying back on one side. He does get some reflux/gerd cough and hx of barretts. No orthopnea last night. No sputum production. Cough is dry. No diarrhea/constipation No syncope/presyncope, but feels fatigued overall. Feels it is taking progressively longer for exertional fatigue to improve with rest. Pt does not know what his ejection fraction is, is not sure if it is normal or redcued. Medical History: Reviewed Medications: Reviewed Surgical History: Reviewed. Hx [place] Jan 2021 with 1x ULI to circumflex with Dr. Borges. Family history: Reviewed Allergies: Reviewed. No medication allergies Social History: No history current or former tobacco use. Social etoh use on weekends, no weekday use Code Status: Full Code Principal Diagnosis HFpEF Discharge Exam Constitutional: well-appearing, no acute distress HEENT: atraumatic, normocephalic, no conjunctival injection CV: regular rhythm, no murmur appreciated, extremities well-perfused, trace LE edema Resp: No increased work of breathing, lungs clear to auscultation B/L GI: soft, nondistended, nontender, BS normoactive MSK: no gross deformities appreciated Skin: warm, dry, no rash appreciated Neuro: alert, oriented, no focal neurologic deficit appreciated Discharge Data Allergies Allergy/AdvReac Type Severity Reaction Status Date / Time bee venom protein (honey bee) Allergy Severe Anaphylaxis Verified 10/15/22 15:52 Consultations 10/15/22 15:23 ED Decision to Admit Stat Ordered Studies 10/15/22 17:40 US Renal Bladder [US renal/blad retro comp] Routine Laboratory Results WBC 9.16 K/ul (4.8-10.8) 10/18/22 06:52 RBC 3.83 M/uL (4.70-6.10) L 10/18/22 06:52 Hgb 12.4 g/dl (14.0-18.0) L 10/18/22 06:52 Hct 36.9 % (42.0-52.0) L 10/18/22 06:52 MCV 96.3 fL (80.0-100.0) 10/18/22 06:52 MCH 32.4 pg (25.0-34.0) 10/18/22 06:52 MCHC 33.6 g/dL (32.0-36.0) 10/18/22 06:52 RDW Std Deviation 50.3 fL (36.4-46.3) H 10/18/22 06:52 RDW Coeff of Lan 14.6 % (11.5-14.5) H 10/18/22 06:52 Plt Count 163 K/uL (130-400) 10/18/22 06:52 MPV 10.2 fL (9.4-12.4) 10/18/22 06:52 Immature Gran % (Auto) 0.3 % 10/18/22 06:52 Neut % (Auto) 71.3 % 10/18/22 06:52 Lymph % (Auto) 13.9 % 10/18/22 06:52 Davie % (Auto) 12.0 % 10/18/22 06:52 Eos % (Auto) 1.4 % 10/18/22 06:52 Baso % (Auto) 1.1 % 10/18/22 06:52 Neut # (Auto) 6.53 K/uL (1.40-6.50) H 10/18/22 06:52 Lymph # (Auto) 1.27 K/uL (1.2-3.4) 10/18/22 06:52 Davie # (Auto) 1.10 K/uL (0.11-0.59) H 10/18/22 06:52 Eos # (Auto) 0.13 K/uL (0-0.50) 10/18/22 06:52 Baso # (Auto) 0.10 K/uL (0-0.2) 10/18/22 06:52 Immature Gran # (Auto) 0.03 K/uL (0.01-0.20) 10/18/22 06:52 Neutrophils % (Manual) 82 % 10/17/22 05:58 Lymphocytes % (Manual) 13 % 10/17/22 05:58 Monocytes % (Manual) 3 % 10/17/22 05:58 Eosinophils % (Manual) 2 % 10/17/22 05:58 Basophils % (Manual) 1 % 10/17/22 05:58 Neutrophils # (Manual) 5.76 K/uL (1.40-6.50) 10/17/22 05:58 Total Absolute Neuts 5.76 K/uL (1.4-6.5) 10/17/22 05:58 Lymphocytes # (Manual) 0.91 K/uL (1.2-3.4) L 10/17/22 05:58 Total Abs Lymphocytes 0.91 K/uL (1.2-3.4) L 10/17/22 05:58 Monocytes # (Manual) 0.21 K/uL (0.11-0.59) 10/17/22 05:58 Eosinophils # (Manual) 0.14 K/uL (0-0.50) 10/17/22 05:58 Basophils # (Manual) 0.07 K/uL (0-0.2) 10/17/22 05:58 RBC Morphology Unremarkable 10/17/22 05:58 PT 12.4 Seconds (9.0-12.0) H 10/15/22 14:10 INR 1.1 (0.9-1.1) 10/15/22 14:10 APTT 28.2 Seconds (21.0-31.0) 10/15/22 14:10 PTT Ratio 1.0 10/15/22 14:10 Sodium 137 mmol/L (136-145) 10/18/22 06:52 Potassium 4.4 mmol/L (3.5-5.1) 10/18/22 06:52 Chloride 105 mmol/L (98-107) 10/18/22 06:52 Carbon Dioxide 23 mmol/L (21-32) 10/18/22 06:52 Anion Gap 9 (3-11) 10/18/22 06:52 BUN 23 mg/dl (6-23) 10/18/22 06:52 Creatinine 1.58 mg/dl (0.6-1.4) H 10/18/22 06:52 Est Cr Clr Drug Dosing 55.7 ml/min 10/18/22 06:52 Est GFR ( Amer) 53.9 ml/min 10/18/22 06:52 Est GFR (Non-Af Amer) 46.5 ml/min 10/18/22 06:52 BUN/Creatinine Ratio 14.6 (10-20) 10/18/22 06:52 Glucose 124 mg/dl (70-99(Fasting)) H 10/18/22 06:52 Calcium 9.5 mg/dl (8.6-10.3) 10/18/22 06:52 Magnesium 1.9 mg/dl (1.7-2.4) 10/18/22 06:52 Total Bilirubin 0.7 mg/dl (0.2-1.0) 10/15/22 14:10 AST 25 U/L (13-39) 10/15/22 14:10 ALT 23 U/L (7-52) 10/15/22 14:10 Alkaline Phosphatase 64 U/L (34-104) 10/15/22 14:10 Troponin I High Sens 17.5 pg/ml (0-20) 10/15/22 14:10 B-Natriuretic Peptide 111 pg/ml (0-100) H 10/15/22 14:10 Total Protein 7.2 gm/dl (6.0-8.3) 10/15/22 14:10 Albumin 3.8 gm/dl (3.4-5.0) 10/15/22 14:10 Globulin 3.4 gm/dl (2.5-4.0) 10/15/22 14:10 Albumin/Globulin Ratio 1.1 (0.9-2) 10/15/22 14:10 Urine Color Yellow 10/15/22 20:50 Urine Appearance Clear (Clear) 10/15/22 20:50 Urine pH >= 9.0 (4.5-7.5) H 10/15/22 20:50 Ur Specific Rubicon 1.008 (1.000-1.030) 10/15/22 20:50 Urine Protein Negative (Negative) 10/15/22 20:50 Urine Glucose (UA) Negative (Negative) 10/15/22 20:50 Urine Ketones Negative (Negative) 10/15/22 20:50 Urine Blood Negative (Negative) 10/15/22 20:50 Urine Nitrite Negative (Negative) 10/15/22 20:50 Urine Bilirubin Negative (Negative) 10/15/22 20:50 Urine Urobilinogen Negative (Negative) 10/15/22 20:50 Ur Leukocyte Esterase Negative (Negative) 10/15/22 20:50 Lyme Disease IgG Ab Negative (Negative) 10/15/22 14:10 Lyme Disease IgM Ab Negative (Negative) 10/15/22 14:10 SARS-CoV-2 (PCR) NEGATIVE (Negative) 10/15/22 15:00 Influenza Type A (PCR) Negative (Neg) 10/15/22 15:00 Influenza Type B (PCR) Negative (Neg) 10/15/22 15:00 RSV (RT-PCR) Negative (Neg) 10/15/22 15:00 Impressions Chest X-Ray 10/15/22 14:19 XR chest 1V portable CLINICAL HISTORY: Dyspnea, hypoxia TECHNIQUE: Single frontal radiograph of the chest was obtained. Comparison: None available at the time of this dictation. FINDINGS: Exam is limited by underpenetration. Cardiomegaly is noted. Prominence and cephalization of the vasculature is seen. No evidence of pleural effusion or pneumothorax. IMPRESSION: Cardiomegaly and mild pulmonary edema. ACT 112: Negative or not required by law. Electronically signed by: Henry Barrios M.D. 10/15/2022 3:00 PM Renal Ultrasound 10/15/22 17:40 ULTRASOUND KIDNEYS AND BLADDER CLINICAL HISTORY: Acute renal insufficiency. COMPARISON STUDY: No priors. TECHNIQUE: Real-time, grayscale, and color flow sonography of the kidneys and bladder is performed. Images are reviewed in the transverse and longitudinal planes. FINDINGS: Kidneys: The kidneys are normal in size and echotexture. The right kidney measures 13.3 x 5.4 x 4.4 cm and the left kidney measures 11.9 x 5.4 x 5.0 cm. There is no hydronephrosis. No shadowing renal calculi are identified. There is no sonographic evidence of contour deforming renal mass lesion. No perinephric fluid is identified. Bladder: The bladder wall appears mildly thickened/trabeculated suggesting chronic outlet obstruction. Bilateral ureteral jets were seen. IMPRESSION: 1. Normal sonographic appearance of the kidneys. 2. The appearance of the bladder suggests chronic outlet obstruction. ACT 112: Negative or not required by law. Electronically signed by: Vance Horowitz M.D. 10/16/2022 7:06 AM Hospital Course (1) CAD (coronary artery disease): (2) HTN (hypertension): (3) Afib: (4) Shelby esophagus: (5) GERD (gastroesophageal reflux disease): (6) PRISCILLA (obstructive sleep apnea): Plan Acute hypoxic respiratory failure secondary to HFpEF History of CAD w/ PCI, no echo or records available as patient is [facility] patient. CXR in ED consistent with pulmonary edema, BNP is mildly elevated at 111 EKG: Sinus rhythm with first-degree AV block, QTc 459, no territorial ST segment or T wave changes - high-sensitivity troponin 17.5 Was diuresed with IV Lasix, and negative about 5L throughout admission Echo with grade II diastolic dysfunction, mild to moderate , EF= 60-65% No evidence of superimposed pneumonia, respiratory viral panel is negative - Will be discharged on 20mg lasix daily with instructions to make an extra dose if increase in 5 pounds over dry weight (108kg per hospital scale) GEORGE versus CKD, undetermined stage Admitting creatinine 1.56 without baseline available. Patient denies kidney disease at baseline - losartan held, plan to restart at d/c - Creatine trending down with diuresis, did have small bump prior to d/c. Likely reached point of maximal dieresis Renal ultrasound with mildly thickening on bladder suggestive on chronic outlet obstruction - repeat CMP in 1 week CAD, HFpEF No acute EKG changes, high sensor troponin normal Patient has a stent card with him, confirms 1 ULI to circumflex. Patient continues on aspirin/Eliquis. He is on Eliquis for paroxysmal A-fib. Continue atorvastatin 80 mg daily Continue carvedilol 6.25 mg twice daily Continue aspirin 81mg daily Continue losartan 100 mg daily Paroxysmal A-fib Patient with history of paroxysmal A-fib, anticoagulated on Eliquis Sinus rhythm thorough out admission No acute change in management for this at time of admission Hypokalemia, hypomagnesemia Repleting as needed. Continue home dose potassium - Repeat CMP in 1 week Hypertension Continue antihypertensives as otherwise noted Patient has had hypertension despite multiple agents and a history of hypokalemia. - renin/low levels pending, will need to be f/u by PCP PRISCILLA -home cpap Total Time Total Time Spent Total Time Spent (In Minutes): 30 Discharge Plan Discharge Items Patient Disposition: Home - Self-Care Reason For Visit: AHRF SUSPECT CHF Discharge Diagnosis: Acute Exacerbation CHF Activity: Per Instructions section Non-emergency contact: Primary Care Provider Call non-emergency contact if: you have any medication questions Follow-up/Referrals: Uche Rocha DO [Physician] - Samir Rodarte D.O. [Primary Care Provider] - (PLEASE CALL YOUR PRIMARY CARE PROVIDER TO SCHEDULE A DISCHARGE FOLLOW-UP APPOINTMENT WITHIN 7-10 DAYS) Diet: Regular Addtl Attending Provider Instructions: You were admitted with shortness of breath and fatigue which we believe is caused by extra fluid on your body that has likley been building up for awhile. We treated you with IV diurectics. We believe that you are at a dry weight now, we have gotten off all the extra fluid. Please weigh yourself when you get home. We are going to start you on a dieretic, Lasix, daily. If you were to gain an additional 5 pounds from your dry weight, please take an additional dose. We would like you to follow up with our primary care doctor in the next week, at that time they should repeat labs for you. We put in a referral to see Dr. Rocha, if you do not hear from his office please call to schedule an appointment. Pending Studies at Discharge: No Stand-Alone Forms: My Sofea, Smoking Cessation Medications and DC Order Prescriptions: New furosemide [Lasix] 20 mg tablet 20 mg PO DAILY Qty: 45 0RF Rx Instructions: 1 tab daily. Additional tab is increase in dry weight greater than 5 pounds. Continued carvedilol 6.25 mg tablet 6.25 mg PO BID potassium chloride 20 mEq tablet,ER particles/crystals 20 meq PO QAM amlodipine 10 mg tablet 10 mg PO QAM nitroglycerin [Nitrostat] 0.4 mg tablet, sublingual 0.4 mg sublingual UD PRN (Reason: Chest Pain) losartan 100 mg tablet 100 mg PO QAM Eliquis 5 mg tablet 5 mg PO BID atorvastatin [Lipitor] 80 mg tablet 80 mg PO QPM aspirin 81 mg Tablet,Delayed Release (Dr/Ec) 81 mg PO QAM Discharge Orders: Discharge Order (Routine); Ordered 10/18/22 Ordered By: Dominique Escobar Admission Data Admit Date/Time: 10/15/22 15:51 Attending Provider: Deven Green Admit Provider: Mckay Power Primary Care Provider: Samir Rodarte Other Providers: Mckay Power Other Interventions: Discharge Summary Assessment (RN) Last Done: 10/18/22 12:56 Supervising Physician Co-Signing Physician Notes Attending attestation Pt seen and examined in concert with Dr. Escobar. In agreement with the documented findings as noted in the resident documentation with any exceptions or additions as noted here. Ongoing improvement in SOB, tolerating off NC at present without issue. Nichelle ated CPAP o/n On examination, S1/S2 nl RRR no MCG. bilateral bases with mild rales. Abd NT/ND BS+ve. trace edema to the distal hernandez bilaterally AHRF with concern for HFpEF with acute exacerbation without previous Dx of HF known - TTE as noted. transition to 20mg daily furosemide PO. Encourage weight monitoring and f/u with cardiology as outpatient and PCP. GEORGE - slight bump as diuresis completed but stable. Would repeat BMP at follow up. Renin, angiotensin pending at discharge. Else see resident documentation as noted. Total attending physician time spent with this patient's care on the day of discharge: 35 minutes. Resident Activity Tracking Resident Involvement: Resident Care Provided Care Provided: Adult Hospital Medicine
== END 2022-10-18 15:27 | disposition home or self-care (01) | DRG 291 ==
LOC: ED 14:00 → 2N 15:51 → SUATTDRO 15:51 → 2N 17:20